=== PATIENT | female | born 1990 | race American Indian/Alaskan Native ===

== ENCOUNTER 2017-11-08 20:19 | Emergency (ER) | payer SELFPAY ==
[2017-11-08 20:25] VITALS: BP 126/87
[2017-11-08 23:58] LABS: HCG Qualitative,Urine Negative (Negative)
[2017-11-09 00:10] LABS: Bilirubin,Urine NEG (Negative); Blood,Urine NEG (Negative); Color,Urine Straw (Yellow); Mucus,Urine FEW /HPF; Nitrite,Urine NEG (Negative); Protein,Urine <15 mg/dL mg/dL (Negative); Urobilinogen,Urine < 2.0 mg/dL (<2.0)
--- NOTE | 2017-11-09 04:33 | Emergency Department Report ---
ED Female HPI - General Chief complaint: Urogenital-Female Stated complaint: STD Time Seen by Provider: 11/09/17 03:58 Source: patient Mode of arrival: Ambulatory Limitations: No Limitations - History of Present Illness Initial comments: 27-year-old female status is the complaining of lower pelvic cramping with mild burning with urination x 1 week. Patient states she noticed some white vaginal discharge with mild older. She denies vaginal itching. Patient states last unprotected intercourse was over a month ago. Patient states she is not sure if she has an STD but this feels like she has some cervical infection and wanted to come get checked. -: week(s) Location: suprapubic Radiation: non-radiating Severity: mild Severity scale (0 -10): 2 Quality: cramping Improves with: none Worsens with: none Are you Now?: No Associated Symptoms: denies other symptoms - Related Data Sexually active: Yes Previous Rx's Medication Instructions Recorded Last Taken Type Lidocain2.5%/Prilocai2.5% [Emla] 5 gm TP ONCE PRN #1 tube 07/24/16 Unknown Rx Ciprofloxacin HCl [Ciprofloxacin 500 mg PO Q12HR #14 tab 11/09/17 Unknown Rx TAB] Ibuprofen [Motrin 800 MG tab] 800 mg PO TID PRN #30 tablet 11/09/17 Unknown Rx Allergies Allergy/AdvReac Type Severity Reaction Status Date / Time No Known Allergies Allergy Verified 11/08/17 20:41 ED Review of Systems ROS: Stated complaint: STD Other details as noted in HPI Constitutional: denies: chills, fever Eyes: denies: eye pain, eye discharge, vision change ENT: denies: ear pain, throat pain Respiratory: denies: cough, shortness of breath, wheezing Cardiovascular: denies: chest pain, palpitations Endocrine: no symptoms reported Gastrointestinal: denies: abdominal pain, nausea, diarrhea Genitourinary: dysuria, discharge (white, mild odor). denies: urgency, frequency, hematuria Musculoskeletal: denies: back pain, joint swelling, arthralgia Skin: denies: rash, lesions Neurological: denies: headache, weakness, paresthesias Psychiatric: denies: anxiety, depression Hematological/Lymphatic: denies: easy bleeding, easy bruising ED Past Medical Hx - Past Medical History Hx Hypertension: No Hx Heart Attack/AMI: No Hx Congestive Heart Failure: No Hx Diabetes: No Hx Deep Vein Thrombosis: No Hx Pulmonary Embolism: No Hx Liver Disease: No Hx Renal Disease: No Hx Sickle Cell Disease: No Hx Headaches / Migraines: No Hx Seizures: No Hx Psychiatric Treatment: No Hx Asthma: No Hx COPD: No Hx Tuberculosis: No Hx HIV: No Additional medical history: anxiety - Surgical History Past Surgical History?: No - Social History Smoking Status: Never Smoker Substance Use Type: Alcohol - Medications Home Medications: Home Medications Medication Instructions Recorded Confirmed Last Taken Type Lidocain2.5%/Prilocai2.5% [Emla] 5 gm TP ONCE PRN #1 tube 07/24/16 Unknown Rx Ciprofloxacin HCl [Ciprofloxacin 500 mg PO Q12HR #14 tab 11/09/17 Unknown Rx TAB] Ibuprofen [Motrin 800 MG tab] 800 mg PO TID PRN #30 tablet 11/09/17 Unknown Rx ED Physical Exam - General Limitations: No Limitations General appearance: alert, in no apparent distress - Head Head exam: Present: atraumatic, normocephalic - Eye Eye exam: Present: normal appearance - ENT ENT exam: Present: mucous membranes moist - Neck Neck exam: Present: normal inspection - Respiratory Respiratory exam: Present: normal lung sounds bilaterally. Absent: respiratory distress - Cardiovascular Cardiovascular Exam: Present: regular rate, normal rhythm. Absent: systolic murmur, diastolic murmur, rubs, gallop - GI/Abdominal GI/Abdominal exam: Present: soft, normal bowel sounds - External exam: Present: normal external exam, lesions (razor cut on right labia) . Absent: erythema, swelling Speculum exam: Present: normal speculum exam, vaginal discharge (mild white). Absent: erythema, cervical discharge, vaginal bleeding, laceration Bi-manual exam: Present: normal bi-manual exam. Absent: cervical motion tendernes, adnexal tenderness, uterine enlargement - Extremities Exam Extremities exam: Present: normal inspection, full ROM - Back Exam Back exam: Present: normal inspection - Neurological Exam Neurological exam: Present: alert, oriented X3 - Psychiatric Psychiatric exam: Present: normal affect, normal mood - Skin Skin exam: Present: warm, dry, intact, normal color. Absent: rash ED Course Vital Signs 11/08/17 11/08/17 20:21 20:41 Temperature 98.6 F 98.6 F Pulse Rate 116 H 108 H Respiratory 20 20 Rate Blood Pressure 126/87 126/87 O2 Sat by Pulse 100 100 Oximetry ED Medical Decision Making - Medical Decision Making 27-year-old female presents with mild cystitis ED course: Urinalysis, urine tests, wet prep, gonorrhea and Chlamydia cultures sent Urinalysis positive for small leukocyte esterase. He improved to test negative wet prep negative I discussed his findings with the patient. I discussed the patient that she will have a mild UTI and will be given some antibiotics to treat that. I discussed the patient to increase hydration, cranberry juice helps to prevent UTI. Vital signs are normal. She is in no acute distress I discussed the patient and she has new onset of symptoms or worsening symptoms return to ED immediately. Critical care attestation.: If time is entered above; I have spent that time in minutes in the direct care of this critically ill patient, excluding procedure time. ED Disposition Clinical Impression: Cystitis, Dysuria Disposition: DC-01 TO HOME OR SELFCARE Is pt being admited?: No Does the pt Need Aspirin: No Condition: Stable Instructions: Dysuria (ED), Urinary Tract Infection in Women (ED) Additional Instructions: Make sure to follow up with the primary care physician as discussed. Take all your medications as you've been prescribed. If you have any worsening symptoms or develop new symptoms please return to ED immediately. Prescriptions: Ciprofloxacin HCl [Ciprofloxacin TAB] 500 mg PO Q12HR #14 tab Ibuprofen [Motrin 800 MG tab] 800 mg PO TID PRN #30 tablet PRN Reason: Pain Referrals: SARAH JACKSON MD [Primary Care Provider] - 3-5 Days [facility] [Outside] - 3-5 Days [facility] [Outside] - 3-5 Days Forms: Work/School Release Form(ED) Time of Disposition: 04:47
== END 2017-11-09 05:00 | disposition home or self-care (01) ==
LOC: ED 20:19
DX: N30.90 Cystitis, unspecified without hematuria (principal)
CPT/HCPCS: 81001; 81025; 87210; 87591; 99284

== ENCOUNTER 2018-04-19 15:24 | Emergency (ER) | payer OTHER ==
[2018-04-19 16:31] VITALS: BP 140/93
--- NOTE | 2018-04-19 18:10 | Emergency Department Report ---
ED Rash HPI - HPI Chief Complaint: Skin Rash Stated Complaint: BUG BITE ALL OVER BODY AND ITCHING Time Seen by Provider: 04/19/18 17:44 Duration: 2 Days Location: Back, Upper Extremities Suspected Cause: Insect Rash Symptoms: Yes Itching, Yes Myalgias, No Facial Swelling, No Tongue/Oral Swelling, No Breathing Difficulties, No Choking Sensation, No Wheezing/Dyspnea, No Peeling, No Blistering, No Fever, No Lightheaded, No Malaise Severity: mild Other History: Father has infestation of bug bites. Swetha is a healthy 27 yo with papular rash. ED Review of Systems ROS: Stated complaint: BUG BITE ALL OVER BODY AND ITCHING Other details as noted in HPI Constitutional: denies: fever, malaise Cardiovascular: denies: chest pain Gastrointestinal: denies: abdominal pain Skin: rash ED Past Medical Hx - Past Medical History Previous Medical History?: Yes Hx Hypertension: No Hx Heart Attack/AMI: No Hx Congestive Heart Failure: No Hx Diabetes: No Hx Deep Vein Thrombosis: No Hx Pulmonary Embolism: No Hx Liver Disease: No Hx Renal Disease: No Hx Sickle Cell Disease: No Hx Headaches / Migraines: No Hx Seizures: No Hx Psychiatric Treatment: No Hx Asthma: No Hx COPD: No Hx Tuberculosis: No Hx HIV: No Additional medical history: anxiety, Vaginal delivery x 3 - Surgical History Past Surgical History?: No - Social History Smoking Status: Never Smoker Substance Use Type: Alcohol, Other - Medications Home Medications: Home Medications Medication Instructions Recorded Confirmed Last Taken Type Lidocain2.5%/Prilocai2.5% [Emla] 5 gm TP ONCE PRN #1 tube 07/24/16 Unknown Rx Ciprofloxacin HCl [Ciprofloxacin 500 mg PO Q12HR #14 tab 11/09/17 Unknown Rx TAB] Ibuprofen [Motrin 800 MG tab] 800 mg PO TID PRN #30 tablet 11/09/17 Unknown Rx Hydrocortisone 1% [Hydrocortisone 1 applicatio TP TID 7 Days #1 tube 04/19/18 Unknown Rx 1% CREAM] Rash Exam - Exam General: Vital signs noted. No distress. Alert and acting appropriately. HEENT: Yes Drooling, No Periorbital Edema, No Conjuctival Injection, No Chemosis , No Perioral Edema, No Tongue Edema, No Uvular Edema, No Compromised Airway Lungs: No Use of Accessory Muscles Skin: Yes Other (flesh colored papular rash upper arms upper torso) ED Course Vital Signs 04/19/18 16:27 Temperature 98.8 F Pulse Rate 102 H Respiratory 22 Rate Blood Pressure 140/93 O2 Sat by Pulse 100 Oximetry ED Medical Decision Making - Medical Decision Making rash caused by bed bug infestation, rx: hydrocortisone cream Critical care attestation.: If time is entered above; I have spent that time in minutes in the direct care of this critically ill patient, excluding procedure time. ED Disposition Clinical Impression: Infestation by bed bug, Rash Disposition: - TO HOME OR SELFCARE Is pt being admited?: No Does the pt Need Aspirin: No Condition: Stable Instructions: Acute Rash (ED) Prescriptions: Hydrocortisone 1% [Hydrocortisone 1% CREAM] 1 applicatio TP TID 7 Days #1 tube Referrals: PRIMARY CARE, [Primary Care Provider] - 3-5 Days Time of Disposition: 18:10
== END 2018-04-19 18:20 | disposition home or self-care (01) ==
LOC: ED 15:24
DX: B88.8 Other specified infestations (principal)
CPT/HCPCS: 99282

== ENCOUNTER 2020-10-22 23:12 | Inpatient (IN) | payer MEDICAID, OTHER ==
[2020-10-22] MEDS ORDERED: CARBOPROST TROMETHAMINE 250 MCG/1 ML INJ IM PRN (23:35)
[2020-10-22] MEDS ORDERED: ONDANSETRON 4 MG/2 ML INJ IV PRN (23:35)
[2020-10-22] MEDS ORDERED: fentaNYL 100 MCG/2 ML INJ IV PRN (23:35)
[2020-10-22] MEDS ORDERED: METHYLERGONOVINE MALEATE 0.2 MG/ML VIAL IM PRN (23:35)
[2020-10-22] MEDS ORDERED: ACETAMINOPHEN 500 MG TAB PO PRN (23:35)
[2020-10-22] MEDS ORDERED: NALOXONE 0.4 MG/1 ML INJ IV PRN (23:35)
[2020-10-22] MEDS ORDERED: ePHEDrine SULFATE 50 MG/1 ML INJ IV PRN (23:35)
[2020-10-22] MEDS ORDERED: PROMETHAZINE 25 MG TAB PO PRN (23:35)
[2020-10-22] MEDS ORDERED: LIDOCAINE (2%) 20 MG/1 ML VIAL 20 ML MDV INFILTRATI ONE (23:35)
[2020-10-22] MEDS ORDERED: MINERAL OIL 30 ML ORAL LIQD PO PRN (23:35)
[2020-10-22] MEDS ORDERED: OXYTOCIN 10 UNIT/1 ML INJ IM PRN (23:35)
[2020-10-22] MEDS ORDERED: LOPERAMIDE 2 MG CAP PO PRN (23:35)
[2020-10-22] MEDS ORDERED: TERBUTALINE 1 MG/1 ML INJ SUB-Q PRN (23:35)
--- NOTE | 2020-10-22 23:35 | History and Physical Report ---
History of Present Illness Date of examination: 10/22/20 (Active labor) Date of admission: 10/22/2020 Chief complaint: Contractions History of present illness: Pt presents to triage with c/o ctxs. Cervical exam upon admission was 7/100/0. Of note, pt was to see AMFM d/t 4 cm fibroid and subchoronic hemorrhage. Past History : 7 Past Medical History: Reviewed history from 08/23/2019 and no changes required: Panic attacks Fibroids - discoverd in 2015 Past Surgical History: Reviewed history from 05/06/2014 and no changes required: negative Past Medical History Anesthesia Complications: negative Anemia: negative Autoimmune Disorder: negative Bleeding Disorder: negative Blood Transfusions: negative Breast Disease: negative Diabetes: negative Heart Disease: negative Hypertension: negative Hepatitis/Liver Disease: negative Kidney Disease/UTI: negative Neurologic/Epilepsy/Migraines: negative Phlebitis/Varicosities: negative Psychiatric: negative Pulmonary Disease/Asthma: negative Thyroid Disease: negative Hospitalizations: negative Surgery (Non-tax accountant): negative Abnormal PAP: negative JOSE Exposure: negative Infertility: negative Uterine Anomaly: negative Uterine Surgery (not C/S): negative Other Gynecologic Problems: negative Social Hx: GCA no e/t/d Patient is single Smoking History: Patient currently smokes 4 cigs per week Infection History Hx of STD: Trich HIV Risk Eval: no Hepatitis B Risk Eval: low risk Personal hx. of genital herpes: no Partner hx. of genital herpes: no Rash, Viral, or Febrile illness since last LMP? no Varicella/Chicken Pox Status: No Genetic History Congenital Heart Defect: Mom: no Dad: no Xochitl Disease: Mom: no Dad: no Thalassemia Mom: no Dad: no Neural Tube Defect Mom: no Dad: no Down's Syndrome Mom: no Dad: no Adam-Sachs Mom: no Dad: no Sickle Cell Disease/Trait Mom: no Dad: no Hemophilia Mom: no Dad: no Muscular Dystrophy Mom: no Dad: no Cystic Fibrosis Mom: no Dad: no Pacific Chorea Mom: no Dad: no Mental Retardation Mom: no Dad: no Fragile X Mom: no Dad: no Other Genetic/Chromosomal Disorder Mom: no Dad: no Child w/other defect Mom: no Dad: no Enviromental Exposures Xray Exposure: no Medication, drug, or alcohol use since LMP: no Chemical/Other Exposure: no Exposure to Cat Liter: no Hx of Parvovirus (Fifth Disease): no Occupational Exposure to Children: none Active Medications (reviewed today): NUVARING 0.12-0.015 MG/24HR VAGINAL RING (ETONOGESTREL-ETHINYL ESTRADIOL) 1ring, inserted vaginally leave in place for 3 consecutive weeks, removed for 1 week.Iinsert new ring 7 days after the last was removed Current Allergies (reviewed today): No known allergies Past History Past Medical History: hypertension (Possible history of HTN.) Past Surgical History: no surgical history Family/Genetic History: none Social history: no significant social history - Obstetrical History Expected Date of Delivery: 10/22/20 Actual Gestation: 40 Week(s) 1 Day(s) : 7 Para: 3 Hx # Term Pregnancies: 3 Number of Pregnancies: 0 Spontaneous Abortions: 2 Induced : 1 Number of Living Children: 3 Medications and Allergies Allergies Allergy/AdvReac Type Severity Reaction Status Date / Time No Known Allergies Allergy Verified 11/08/17 20:41 Home Medications Medication Instructions Recorded Confirmed Last Taken Type Vitamin 1 tab PO DAILY 10/22/20 10/22/20 1 Day Ago History ~10/21/20 Review of Systems All systems: negative - Physical Exam Breasts: Positive: deferred Cardiovascular: Regular rate, Normal S1, Normal S2 Lungs: Positive: Normal air movement Abdomen: Positive: normal appearance, guarding Genitourinary (Female): Positive: normal external genitalia, normal perenium Vulva: both: normal Vagina: Positive: normal moisture. Negative: discharge Cervix: Negative: lesion, discharge Uterus: Positive: normal size, normal contour Adnexa: both: normal Anus/Rectum: Positive: normal perianal skin, heme negative. Negative: rectal mass, hemorrhoids Extremities: Deep Tendon Reflex Grade: Normal +2 - Obstetrical FHR: auscultation normal Cervical Dilatation: 7 (Per cleaner assistant) Cervical Effacement Percentage: 100 station: 0 Results Result Diagrams: 10/22/20 23:50 All other labs normal. GBS NEGATIVE HBsAg Screen Negative Negative *1 RPR Non Reactive Non Reactive *2 Rubella Antibodies, IgG 6.02 index Immune >0.99 *3 Non-immune <0.90 Equivocal 0.90 - 0.99 Immune >0.99 ABO Grouping O *4 Rh Factor Positive *5 Please note: Prior records for this patient's ABO / Rh type are not available for additional verification. Antibody Screen Negative Negative *6 Tests: (2) HB Solu + Rflx Fra (179147) Hemoglobin (Hgb) Solubility Negative Negative *31 Tests: (3) HIV Ag/Ab with Reflex ([id number]) HIV Screen 4th Generation wRfx Non Reactive Non Reactive *32 Tests: (4) Varicella-Zoster V Ab, IgG ([id number]) ! Varicella Zoster IgG 842 index Immune >165 *33 Negative <135 Equivocal 135 - 165 Positive >165 A positive result generally indicates exposure to the pathogen or administration of specific immunoglobulins, but it is not indication of active infection or stage of disease. Tests: (5) HCV Ab w/Rflx to Verification ([id number]) ! HCV Ab <0.1 s/co ratio 0.0-0.9 *34 Tests: (6) Comment: ([id number]) ! Comment: SPRCS *35 Non reactive HCV antibody screen is consistent with no HCV infection, unless recent infection is suspected or other evidence exists to indicate HCV infection. Assessment and Plan A: 30 y.o. @ 40 wks in active labor. Cervical exam 100/0. - Patient Problems (1) Active labor at term Onset Date: ~10/23/20 Current Visit: No Status: Acute Plan to address problem: Admit to labor and delivery. Initiate IV bolus for epidural. Anticipate .
[2020-10-22] MEDS ORDERED: OXYTOCIN DRIP 30 UNITS/500 ML BAG IV SCH ×2 (23:45)
[2020-10-22] MEDS ORDERED: LACTATED RINGERS 1,000 ML IV SCH (23:45)
[2020-10-22 23:59] LABS: Hematocrit 30.7 % (30.3-42.9); Hemoglobin 9.9 gm/dl (10.1-14.3); Mean Corpuscular HGB Conc 32 % (30-34); Mean Corpuscular Volume 82 fl (79-97); Platelet Count 447 K/mm3 (140-440); Red Blood Count 3.75 M/mm3 (3.65-5.03)
--- NOTE | 2020-10-23 00:15 | Procedure Note ---
OB Delivery Note - Delivery Date of Delivery: 10/23/20 Rug Renovator: ROC FENG Estimated blood loss: 300cc - Vaginal Delivery presentation: vertex Delivery position: OA Intrapartum events: none Delivery induction: none Delivery augmentation: rupture of membranes (AROM at delivery. ) Delivery monitor: external FHT, external uterine Route of delivery: Delivery placenta: spontaneous Delivery cord: 3 umbilical vessels Episiotomy: none Delivery laceration: none Anesthesia: none Delivery comments: AROM @ 2345 for clear fluid. of viable female over intact perineum. to mother's chest for skin to skin. Cord cut and clamped and infant taken to warmer for assessment. Spontaneous delivery of placenta, intact, 3 vessels noted. Perineum and vagina inspected, no lacerations noted. EBL 300 ml. weight 5-8. Apgars 8,9.
[2020-10-23] MEDS ORDERED: diphenhydrAMINE 25 MG CAP PO PRN (00:28)
[2020-10-23] MEDS ORDERED: WITCH HAZEL/ GLYCERIN PAD TP PRN (00:28)
[2020-10-23] MEDS ORDERED: BENZOCAINE/MENTHOL 20/0.5% TOP SPRAY 56 GM TP PRN (00:28)
[2020-10-23] MEDS ORDERED: MAGNESIUM HYDROXIDE (MOM) ORAL LIQD UDC PO PRN (00:28)
[2020-10-23] MEDS ORDERED: PROMETHAZINE 25 MG TAB PO PRN (00:28)
[2020-10-23] MEDS ORDERED: PROMETHAZINE 25 MG RECT SUPP PR PRN (00:28)
[2020-10-23] MEDS ORDERED: LANOLIN/ZINC/DIMETHICONE (LANSINOH) 7 GM TP PRN ×2 (00:28)
[2020-10-23] MEDS ORDERED: ACETAMINOPHEN 325 MG TAB PO PRN (00:28)
[2020-10-23] MEDS ORDERED: ONDANSETRON 4 MG/2 ML INJ IV PRN (00:28)
[2020-10-23] MEDS: IBUPROFEN 800 MG TAB PO SCH ×3 (02:52→20:39)
--- NOTE | 2020-10-23 08:50 | Progress Note ---
<SWATHI VASQUES - Last Filed: 10/23/20 08:51> Assessment and Plan patient doing well, no complaints. desires mirena for contraception. VSSAF, H&H to be drawn this later this morning, no s/s anemia. Lochia scant, fundus firm. - Patient Problems (1) Vaginal delivery Onset Date: 07/24/16 Current Visit: No Status: Acute Plan to address problem: Continue pathway, anticipate c/s home tomorrow. Subjective - Subjective Date of service: 10/23/20 Principal diagnosis: day #1 s/p ; <12hrs Patient reports: appetite normal, voiding normally, pain well controlled, ambulating normally, no dizzy ambulation, no nauseated Wesley: doing well Objective - Vital Signs Latest vital signs: Vital Signs Temp Pulse Resp BP BP 10/23/20 02:25 97.8 F 91 H 21 126/72 10/23/20 00:12 98.6 F 112 H 18 114/71 10/23/20 00:11 112 H 114/71 10/22/20 23:39 115 H 125/80 10/22/20 23:30 98.4 F 22 Intake and Output 10/22/20 10/23/20 10/23/20 23:59 07:59 15:59 Intake Total 400 Output Total 1100 Balance -700 Intake: Oral 400 Output: Urine 1100 Void 1100 Other: Total, Intake Amount 200 Total, Output Amount 400 Weight 75.75 kg Estimated Blood Loss 300 - Exam Breasts: Present: normal Cardiovascular: Present: Regular rate Lungs: Present: Clear to auscultation, Normal air movement Abdomen: Present: normal appearance, soft Vulva: both: normal Uterus: Present: normal, firm, fundal height below umbilicus Extremities: Present: normal Deep Tendon Reflex Grade: Normal +2 - Labs Labs: Abnormal lab results 10/22/20 Range/Units 23:50 WBC 15.8 H (4.5-11.0) K/mm3 Hgb 9.9 L (10.1-14.3) gm/dl MCH 27 L (28-32) pg Plt Count 447 H (140-440) K/mm3 <KALIA CORBIN - Last Filed: 10/23/20 10:37> Assessment and Plan - Patient Problems (1) Vaginal delivery Onset Date: 07/24/16 Current Visit: No Status: Acute Plan to address problem: Anticipate discharge tomorrow Objective - Vital Signs Latest vital signs: Vital Signs Temp Pulse Resp BP BP 10/23/20 08:30 97.9 F 85 20 115/79 10/23/20 02:25 97.8 F 91 H 21 126/72 10/23/20 00:12 98.6 F 112 H 18 114/71 10/23/20 00:11 112 H 114/71 10/22/20 23:39 115 H 125/80 10/22/20 23:30 98.4 F 22 Intake and Output 10/22/20 10/23/20 10/23/20 22:59 06:59 14:59 Intake Total 400 120 Output Total 1100 Balance -700 120 Intake: Oral 400 120 Output: Urine 1100 Void 1100 Other: Total, Intake Amount 200 120 Total, Output Amount 400 Weight 167 lb Estimated Blood Loss 300 - Labs Labs: Abnormal lab results 10/22/20 Range/Units 23:50 WBC 15.8 H (4.5-11.0) K/mm3 Hgb 9.9 L (10.1-14.3) gm/dl MCH 27 L (28-32) pg Plt Count 447 H (140-440) K/mm3
[2020-10-23] MEDS: DOCUSATE SODIUM 100 MG CAP PO SCH ×2 (10:10→22:14)
[2020-10-23] MEDS: PRENATAL VIT27-FE FUMARATE-FOLIC ACID VIT TAB PO SCH (10:10)
[2020-10-23 16:26] LABS: Hematocrit 29.7 % (30.3-42.9); Hemoglobin 9.7 gm/dl (10.1-14.3)
[2020-10-24] MEDS ORDERED: DIPHtheria,PERTUSSIS(ACELL),TETANUS VACCINE/PF 0.5 ML VIAL IM ONE (06:00)
[2020-10-24] MEDS: IBUPROFEN 800 MG TAB PO SCH (09:52)
[2020-10-24] MEDS: PRENATAL VIT27-FE FUMARATE-FOLIC ACID VIT TAB PO SCH (09:52)
[2020-10-24] MEDS: DOCUSATE SODIUM 100 MG CAP PO SCH (09:52)
--- NOTE | 2020-10-24 11:12 | Discharge Summary ---
Providers - Providers Date of Admission: 10/22/20 23:35 Date of discharge: 10/24/20 Attending physician: AILYN LOWE Primary care physician: AILYN LOWE Hospitalization Reason for admission: active labor Delivery: Procedure details: see delivery note Other procedures: none complications: none Discharge diagnosis: IUP at term delivered baby: female Hospital course: Pt admitted and had . No complications . Pt desires d/c to home today. Condition at discharge: Good Disposition: DC-01 TO HOME OR SELFCARE - Discharge Diagnoses (1) Active labor at term Status: Acute (2) GBS (group B Streptococcus carrier), +RV culture, currently Status: Acute (3) Vaginal delivery Status: Acute Comment: rto 4 weeks rx iron po Plan - Provider Discharge Summary Additional instructions: [] Smoking cessation referral if applicable(refer to patient education folder for contact #) [] Refer to [facility] Booklet Call your doctor immediately for: * Fever > 100.5 * Heavy vaginal bleeding ( >1 pad per hour) * Severe persistent headache * Shortness of breath * Reddened, hot, painful area to leg or breast * Drainage or odor from incision. * Keep incision clean and dry at all times and follow doctor's instructions regarding bathing/showering - Follow up plan Follow up: AILYN LOWE MD [Primary Care Provider] - 6 Weeks Forms: [facility] Discharge Summary
[2020-10-24 13:46] VITALS: BP 105/68
== END 2020-10-24 13:50 | disposition home or self-care (01) | DRG 775 ==
LOC: TRG 23:12 → APU 23:13 → LD 23:35 → TRG 23:35 → OB 10-23 01:50
PROVIDERS: ADMIT Obstetrics & Gynecology; ATTEND Obstetrics & Gynecology
PROC: 10E0XZZ Delivery of Products of Conception, External Approach (ICD-10-PCS; principal; 2020-10-23)
PROC: 10907ZC Drainage of Amniotic Fluid, Therapeutic from Products of Conception, Via Natural or Artificial Opening (ICD-10-PCS; 2020-10-23)
PROC: 3E0234Z Introduction of Serum, Toxoid and Vaccine into Muscle, Percutaneous Approach (ICD-10-PCS; 2020-10-24)
DX: O99.824 Streptococcus B carrier state complicating childbirth (principal); O99.334 Smoking (tobacco) complicating childbirth; F17.210 Nicotine dependence, cigarettes, uncomplicated; Z37.0 Single live birth; Z3A.40 40 weeks gestation of pregnancy; Z20.828 Contact with and (suspected) exposure to other viral communicable diseases; Z23 Encounter for immunization
CPT/HCPCS: 36415; 59025; 85014; 85018; 85027; 86592; 86850; 86900; 86901; G0378; J2590; U0003